=== PATIENT | male | born 1940 ===

== ENCOUNTER → 2019-10-15 16:24 | Outpatient (CLI) | payer MEDICARE, SELFPAY ==
--- NOTE | ~2019-10-15 | XR_ITS ---
EXAMINATION: XR chest 2V EXAM DATE: 10/16/2019 08:54 INDICATION: Cardiomegaly. TECHNIQUE: Frontal and lateral projections of the chest obtained and reviewed. Comparison is made to prior examination from 10/06/2016. FINDINGS: The lungs are clear. There are no pleural effusions. The cardiomediastinal silhouette is within normal limits. There is no pneumothorax suspected. The bones and soft tissues are unremarkab le. There is no significant interval change. IMPRESSION: No acute cardiopulmonary findings. Reviewed, dictated and finalized at location B.
== END ==
PROVIDERS: PCP Internal Medicine; Visit Provider Internal Medicine
DX: I51.7 Cardiomegaly (principal)
CPT/HCPCS: 71046

== ENCOUNTER → 2021-04-10 14:14 | Outpatient (CLI) | payer MEDICARE, SELFPAY ==
--- NOTE | ~2021-04-10 | XR_ITS ---
XR knee RT 2V DATE: 04/10/2021 14:36 INDICATION: Right knee joint swelling TECHNIQUE: Standing AP and lateral views COMPARISON: None FINDINGS: There is joint space and particularly spurring at the medial and patellofemoral compartment s consistent with osteoarthritis. Small osteochondroma of the medial tibial metaphysis. No fracture or dislocation or joint effusion. No periosteal reaction or bone destruction. 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 R [employer]
== END ==
DX: M25.461 Effusion, right knee (principal); M17.11 Unilateral primary osteoarthritis, right knee
CPT/HCPCS: 73560